=== PATIENT | female | born 1985 | race Caucasian/White ===

== ENCOUNTER 2016-06-08 13:47 | Outpatient (CLI) | payer MEDICAID | END 2016-06-08 13:48 | disposition home or self-care (01) | DX: B18.2 Chronic viral hepatitis C (principal) ==

== ENCOUNTER 2016-11-02 09:31 | Outpatient (CLI) | payer MEDICAID | END 2016-11-02 23:59 | disposition home or self-care (01) | LOC: LAB.R 09:31 | PROVIDERS: ATTEND Obstetrics & Gynecology | DX: Z11.3 Encounter for screening for infections with a predominantly sexual mode of transmission (principal) | CPT/HCPCS: 87491; 87591 ==

== ENCOUNTER 2016-11-02 10:00 | Outpatient (CLI) | payer MEDICAID ==
[2016-11-02 10:40] LABS: BILIRUBIN,URINE NEGATIVE (NEGATIVE)
[2016-11-02 10:40] LABS: BASOPHILS % (AUTO) 0.5 %; EOSINOPHILS # (AUTO) 0.4 10^3/uL (0.0-0.7); HCT - HEMATOCRIT 40.3 % (37.0-47.0); HGB - HEMOGLOBIN 13.8 g/dL (12.0-16.0); LYMPHOCYTES # (AUTO) 2.1 10^3/uL (1.5-3.5); LYMPHOCYTES % (AUTO) 22.7 %; MEAN CORPUSCULAR HEMOGLOBIN 29.3 pg (27.0-31.0); MEAN CORPUSCULAR HGB CONC 34.3 g/dL (32.0-36.0); MEAN CORPUSCULAR VOLUME 85.7 fL (81.0-99.0); MONOCYTES # (AUTO) 0.7 10^3/uL (0.0-1.0); MONOCYTES % (AUTO) 7.1 %; NEUTROPHILS # (AUTO) 6.1 10^3/uL (1.5-6.6); NEUTROPHILS % (AUTO) 65.7 %; RED BLOOD COUNT 4.71 10^6/uL (4.20-5.40); RED CELL DISTRIBUTION WIDTH 12.8 % (12.0-15.0); UNCORRECTED WHITE BLOOD COUNT 9.2 x10^3/uL; WHITE BLOOD COUNT 9.2 x10^3/uL (4.8-10.8)
[2016-11-02 10:47] LABS: WBC,URINE 0-3 /HPF (0-5)
[2016-11-05 14:11] LABS: TREPONEMA AB IGG NEGATIVE (())
== END 2016-11-02 10:01 | disposition home or self-care (01) ==
LOC: LAB 10:00
PROVIDERS: ATTEND Obstetrics & Gynecology
DX: Z36 Encounter for antenatal screening of mother (principal)
CPT/HCPCS: 36415; 81001; 85025; 86762; 86780; 86850; 86900; 86901; 87340; 87389; 87491; 87591

== ENCOUNTER 2016-11-26 08:00 | Outpatient (CLI) | payer MEDICAID | END 2016-11-26 08:01 | LOC: LAB.R 08:00 | PROVIDERS: ATTEND Obstetrics & Gynecology | DX: R82.99 Other abnormal findings in urine (principal) | CPT/HCPCS: 87086 ==

== ENCOUNTER 2016-12-13 03:40 | Emergency (ER) | payer MEDICAID ==
--- NOTE | 2016-12-13 04:21 | ED Physician Documentation ---
PD HPI FEMALE - Stated complaint Stated Complaint: ABD PX/14 WKS PREG - Chief complaint Chief Complaint: Abd Pain - History obtained from History obtained from: Patient - History of Present Illness Timing - duration: Hours Timing - details: Abrupt onset, Waxing and waning Pain level max: 6 Associated symptoms: Abdominal pain. 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 Denies vaginal bleeding Review of Systems Constitutional: denies: Fever Cardiac: reports: Reviewed and negative Respiratory: reports: Reviewed and negative GI: reports: Abdominal Pain. denies: Nausea, Vomiting : reports: Now EGA (14 weeks). 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 : Chronic bladder infection HEENT: None Psych: Depression, Anxiety, Bipolar disorder Musculoskeletal: None Derm: None - Past Surgical History Past Surgical History: Yes Cardiovascular: Lobectomy - Allergies Allergies/Adverse Reactions: Allergies Allergy/AdvReac Type Severity Reaction Status Date / Time No Known Drug Allergies Allergy Verified 12/13/16 03:47 - Social History Does the pt smoke?: Yes Smoking Status: Current every day smoker Does the pt drink ETOH?: No Does the pt have substance abuse?: No - Immunizations Immunizations are current?: Yes - POLST Patient has POLST: No PD ED PE NORMAL - Vitals Vital signs reviewed: Yes - General General: Alert and oriented X 3, No acute distress, Well developed/nourished - Cardiac Cardiac: RRR, No murmur - Respiratory Respiratory: No respiratory distress, Clear bilaterally - Abdomen Abdomen: Soft, Non tender, Non distended - Back Back: No CVA TTP Results - Vitals Vitals: Vital Signs - 24 hr 12/13/16 12/13/16 03:43 06:12 Temperature 36.3 C L Heart Rate 82 89 Respiratory 16 14 Rate Blood Pressure 130/69 98/62 O2 Saturation 100 97 Oxygen O2 Source Room air - Rads (name of study) pelvic US Radiology: Prelim report reviewed, See rad report PD MEDICAL DECISION MAKING - ED course Complexity details: reviewed results, re-evaluated patient, considered differential, d/w patient Departure - Departure Disposition: 01 Home, Self Care Clinical Impression: Threatened Condition: Good Instructions: ED Miscarriage Poss Follow-Up: Tony Desouza MD [Provider Admit Priv/Credential] - (Call to arrange for next available appointment) Discharge Date/Time: 12/13/16 07:00
[2016-12-13] MEDS ORDERED: ACETAMINOPHEN 325 MG TABLET PO STA (04:35)
[2016-12-13] MEDS ORDERED: ACETAMINOPHEN 500 MG TABLET PO ONE (04:39)
[2016-12-13 06:14] VITALS: BP 98/62
--- NOTE | 2016-12-13 06:19 | Ultrasound Preliminary Report ---
Exam: US OB 14+ Weeks IMPRESSION: 1. Single live intrauterine gestation with a composite gestational age on limited biometry of 14 week s 1 days (+/- 2 weeks) based on current ultrasound. EDC based on this ultrasound 06/12/2017. 2. No gross acute abnormality. 3. Follow-up suggested at second trimester 1822 week anatomy scan. [facility] SITE ID: [id number]
--- NOTE | 2016-12-13 06:21 | Ultrasound Report ---
EXAM: OBSTETRIC ULTRASOUND, LIMITED EXAM DATE: 12/13/2016 05:59 AM. CLINICAL HISTORY: , cramping. COMPARISON: None. TECHNIQUE: Real-time scanning performed with static images. Both color-flow and Doppler technology were utilized . FINDINGS: Fetus: Single live intrauterine gestation. Presentation: Cephalic. Heart Rate: 144 BPM. Placenta: Fundal position. No placenta previa or abruption. Amniotic Fluid: Subjectively normal. Biometry: Abdominal circumference (AC): 7.8 cm = 14 weeks 1 days. Femur length (FL): 1.3 cm = 14 weeks 0 days. Anatomic Survey: Not performed. Maternal Structures: Cervix: Long and closed measuring 3.3 cm. Uterus/adnexa: Unremarkable. IMPRESSION: 1. Single live intrauterine gestation with a composite gestational age on limited biometry of 14 week s 1 days (+/- 2 weeks) based on current ultrasound. EDC based on this ultrasound 06/12/2017. 2. No gross acute abnormality. 3. Follow-up suggested at second trimester 1822 week anatomy scan. [facility] Referring Provider Line: [phone] SITE ID: [id number]
[2016-12-13] MEDS ORDERED: HYDROcod/ACET 5/325 Prepack 6 PO STA (06:37)
[2016-12-13] MEDS ORDERED: HYDROcod/ACET 5/325 Prepack 6 PO ONE (06:41)
== END 2016-12-13 07:00 | disposition home or self-care (01) ==
LOC: ED 03:40
DX: O20.0 Threatened abortion (principal); O99.332 Smoking (tobacco) complicating pregnancy, second trimester; Z3A.14 14 weeks gestation of pregnancy
CPT/HCPCS: 76805; 99283; A9270

== ENCOUNTER 2017-01-01 12:34 | Outpatient (CLI) | payer MEDICAID ==
--- NOTE | 2017-01-05 10:22 | Ultrasound Report ---
OB ULTRASOUND: 01/01/2017 CLINICAL INDICATION: anatomy. TECHNIQUE: Real-time scanning was performed with inside account representative static images obtained. LAST MENSTRUAL PERIOD 09/05/2016 Clinical Age --- US Age 17 weeks 2 days EFW Hadlock 187 g EFW% Hadlock --- Heart Rate 140 bpm EDC --- US EDC 06/09/2017 BPD Hadlock 17 weeks 2 days; Mean mm 36.8 HC Hadlock 17 weeks 2 days; Mean mm 138.2 AC Hadlock 17 weeks 5 days; Mean mm 119.4 FL Hadlock 16 weeks 6 days; Mean mm 22.7 Presentation cephalic Placental Location --- Cervical Length 3.8 cm Amniotic Fluid 8.5 cm FINDINGS: There is a single viable intrauterine gestation, in variable position. heart rate is 140 BPM. The placenta is posterior, without evidence of previa. Amniotic fluid volume is normal, with an LEE of 8.5. By size , the fetus measures 17.3 weeks (16.9 weeks by LMP). The following anatomic structures were visualized and appear normal: The intracranial contents, including the ventricles and posterior fossa; the lips and orbits; the spine; the heart, including 4 chamber view and outflow tracts, and diaphragm; the abdominal contents, including the stomach, the bilateral kidneys, and urinary bladder, as well as a normal 3 vessel cord insertion; 4 limbs. No free fluid or adnexal lesion is appreciated. IMPRESSION: SINGLE VIABLE INTRAUTERINE GESTATION, WITH SIZE IN KEEPING WITH LMP DATING. NORMAL ANATOMIC SURVEY. [facility]
== END 2017-01-01 12:35 | disposition home or self-care (01) ==
LOC: DI 12:34
PROVIDERS: ATTEND Obstetrics & Gynecology
DX: Z34.82 Encounter for supervision of other normal pregnancy, second trimester (principal)
CPT/HCPCS: 76811

== ENCOUNTER 2017-02-15 09:53 | Outpatient (CLI) | payer MEDICAID ==
[2017-02-15 11:24] LABS: HCT - HEMATOCRIT 33.3 % (37.0-47.0); HGB - HEMOGLOBIN 11.3 g/dL (12.0-16.0); MEAN CORPUSCULAR HEMOGLOBIN 27.9 pg (27.0-31.0); MEAN CORPUSCULAR HGB CONC 33.8 g/dL (32.0-36.0); MEAN CORPUSCULAR VOLUME 82.6 fL (81.0-99.0); MEAN PLATELET VOLUME 8.4 fL (7.9-10.8); RED BLOOD COUNT 4.04 10^6/uL (4.20-5.40); RED CELL DISTRIBUTION WIDTH 13.9 % (12.0-15.0)
== END 2017-02-15 09:54 | disposition home or self-care (01) ==
LOC: LAB 09:53
PROVIDERS: ATTEND Obstetrics & Gynecology
DX: Z36 Encounter for antenatal screening of mother (principal)
CPT/HCPCS: 36415; 82950; 86850

== ENCOUNTER 2017-03-11 18:54 | Outpatient (CLI) | payer OTHER, MEDICAID ==
[2017-03-11 19:41] VITALS: BP 126/69
[2017-03-11 19:55] LABS: BILIRUBIN,URINE NEGATIVE (NEGATIVE)
[2017-03-11 20:13] LABS: UR CULTURE IF IND NOT INDICATED
[2017-03-11 20:35] LABS: BILIRUBIN,URINE NEGATIVE (NEGATIVE)
[2017-03-11 20:39] LABS: UR CULTURE IF IND NOT INDICATED; WBC,URINE 0-3 /HPF (0-5)
== END 2017-03-11 21:00 | disposition home or self-care (01) ==
LOC: WFO 18:54 → FBP 18:57 → WFO 21:00
PROVIDERS: ATTEND Obstetrics & Gynecology
DX: O26.892 Other specified pregnancy related conditions, second trimester (principal); M24.20 Disorder of ligament, unspecified site; Z3A.26 26 weeks gestation of pregnancy
CPT/HCPCS: 81001; 87086; 99213

== ENCOUNTER 2017-04-13 09:11 | Outpatient (CLI) | payer OTHER, MEDICAID | END 2017-04-13 09:12 | disposition home or self-care (01) | LOC: LAB.R 09:11 | PROVIDERS: ATTEND Obstetrics & Gynecology | DX: R82.99 Other abnormal findings in urine (principal) | CPT/HCPCS: 87086 ==

== ENCOUNTER 2017-05-20 08:00 | Outpatient (CLI) | payer MEDICAID, OTHER | END 2017-05-20 08:01 | LOC: LAB.R 08:00 | PROVIDERS: ATTEND Obstetrics & Gynecology | DX: Z36.85 Encounter for antenatal screening for Streptococcus B (principal) | CPT/HCPCS: 87797 ==

== ENCOUNTER 2017-05-25 14:00 | Outpatient (CLI) | payer OTHER | END 2017-05-25 14:01 | disposition home or self-care (01) | LOC: LAB.R 14:00 | PROVIDERS: ATTEND Obstetrics & Gynecology | DX: N89.8 Other specified noninflammatory disorders of vagina (principal) | CPT/HCPCS: 87480; 87510; 87660 ==

== ENCOUNTER 2017-06-04 21:44 | Inpatient (IN) | payer OTHER ==
--- NOTE | 2017-06-01 15:30 | HISTORY & PHYSICAL EXAMINATION ---
DATE OF SERVICE: 06/04/2017 Physician: Ventura Flowers MD DATE OF ADMISSION: 06/04/2017 DIAGNOSES 1. A 39 week gestation. 2. History of rapid labors, the patient lives a considerable distance from hospital. 3. Group B strep positive. Mrs. Vanessa Durham is a 31-year-old 6, para 4-0-1-4, woman at 39 weeks' gestation based on EDC of the 20th, confirmed by 8 week ultrasound. Her previous labors have been fast and she has poor transportation resources. She is GBS positive and will require 2 doses of antibiotics. She is status post a cone biopsy in 2014. She has no cervical incompetence issues. Her last cervical check was 3 cm, 50% effaced, 0 station, membranes intact. She was acontractile without suspect leaking of fluid. Risks and benefits of induction were discussed. Informed consent paperwork signed. Blood type O positive, GBS positive. PAST MEDICAL HISTORY: Patient has a history of bipolar disorder and anxiety. She had previously taken lithium, but it was stopped. No cardiovascular disease. 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 PAST SURGICAL HISTORY: Conization 2014. ALLERGIES: NO KNOWN DRUG ALLERGIES. MEDICATIONS 1. vitamins. 2. Iron. 3. Acyclovir. SOCIAL HISTORY: , status uncertain, smoker, no drug or alcohol use. REVIEW OF SYSTEMS: Negative. PHYSICAL EXAMINATION: GENERAL: Well groomed, pleasant. VITAL SIGNS: 163, blood pressure 118/70. HEENT: Neck supple. NECK: No thyromegaly. Dentition in good repair. LUNGS: Clear. HEART: Regular, no murmur, no gallop. ABDOMEN: Soft, nontender. No hepatosplenomegaly. Uterus is normal resting tone. Vertex presentation. Estimated weight 7-1/2 to 8 pounds. EXTERNAL GENITALIA: No lesions. VAGINA: No blood or discharge. CERVIX: 3 cm, anterior, 50% effaced, 0 station. EXTREMITIES: Moves all 4 extremities well. NEUROLOGIC: Grossly intact. SKIN: No obvious lesions. ADMISSION LABS: Pending. ASSESSMENT AND PLAN: The patient has a history of labors less than 2 hours in length and lives approximately 12 miles away from the hospital. She also has a GBS positive status and therefore planned induction would be advantageous to ensure adequate antibiotic coverage. PLAN 1. Admit Wednesday morning. 2. Begin first dose of antibiotics. 3. Pitocin induction and rupture of membranes where practical. TD: 06/01/2017 16:28 MTDKimmie
[2017-06-04] MEDS ORDERED: ONDANSETRON 4 MG/2 ML VIAL IVP PRN (22:32)
[2017-06-04] MEDS ORDERED: SODIUM CHLORIDE FLUSH 0.9% 10 ML SYRINGE IVP PRN (22:32)
[2017-06-04] MEDS ORDERED: fentaNYL 100 MCG/2 ML VIAL IVP PRN (22:32)
[2017-06-04] MEDS ORDERED: PENICILLIN G POTASSIUM 5,000,000 UNIT in SODIUM CHLORIDE 0.9% MINIBAG 100 ML IV SCH (22:32)
[2017-06-04] MEDS ORDERED: LACTATED RINGERS 1,000 ML IV SCH (23:00)
[2017-06-04 23:51] LABS: BASOPHILS # (AUTO) 0.1 10^3/uL (0.0-0.1); BASOPHILS % (AUTO) 0.5 %; EOSINOPHILS # (AUTO) 0.2 10^3/uL (0.0-0.7); EOSINOPHILS % (AUTO) 1.9 %; HGB - HEMOGLOBIN 9.5 g/dL (12.0-16.0); LYMPHOCYTES # (AUTO) 2.8 10^3/uL (1.5-3.5); LYMPHOCYTES % (AUTO) 23.6 %; MEAN CORPUSCULAR HEMOGLOBIN 21.8 pg (27.0-31.0); MEAN CORPUSCULAR HGB CONC 31.8 g/dL (32.0-36.0); MEAN CORPUSCULAR VOLUME 68.5 fL (81.0-99.0); MEAN PLATELET VOLUME 8.3 fL (7.9-10.8); MONOCYTES # (AUTO) 0.9 10^3/uL (0.0-1.0); MONOCYTES % (AUTO) 7.9 %; NEUTROPHILS # (AUTO) 7.8 10^3/uL (1.5-6.6); NEUTROPHILS % (AUTO) 66.1 %; PLT - PLATELET COUNT 138 10^3/uL (130-450); RED BLOOD COUNT 4.38 10^6/uL (4.20-5.40); WHITE BLOOD COUNT 11.8 x10^3/uL (4.8-10.8)
[2017-06-04 23:52] LABS: RED CELL DISTRIBUTION WIDTH 19.9 % (12.0-15.0)
--- NOTE | 2017-06-05 00:29 | PROVIDER PROGRESS NOTE ---
Labor Progress Note - Uterine Monitoring Uterine Monitoring Mode: positive: External toco Contraction Frequency (min/apart): q 7min Contraction Intensity: positive: Mild Uterine Resting Tone: positive: Soft - Monitoring Monitor Mode: positive: External ultrasound Heart Rate Baseline: 130 Heart Rate Variability: positive: Moderate (6-25 bmp) Accelerations: positive: Present, 15x15 Decelerations: positive: Variable, Intermittent (<50% x20 min) Strip Review: positive: Category I - Vaginal Exam Dilation (in cm): 3 Effacement (%): 50% Station: 0 Cervical Position: Midposition - Labor Progress Note Labor Progress Note/Additional Text: Changes compared to office exam. GBS prophylaxis started. Augmentation at 0500
[2017-06-05] MEDS ORDERED: SODIUM CHLORIDE FLUSH 0.9% 10 ML SYRINGE IVP PRN (00:30)
[2017-06-05] MEDS ORDERED: ZOLPIDEM 5 MG TABLET PO PRN (00:35)
[2017-06-05] MEDS: ACETAMINOPHEN 325 MG TABLET PO SCH ×4 (04:56→14:10)
[2017-06-05] MEDS ORDERED: PENICILLIN G POTASSIUM 2,500,000 UNIT in SODIUM CHLORIDE 0.9% 100ML 100 ML IV SCH (05:00)
[2017-06-05] MEDS ORDERED: OXYTOCIN/SODIUM CHLORIDE 250 ML IV SCH (05:00)
[2017-06-05] MEDS: LACTATED RINGERS 1,000 ML IV SCH ×4 (05:17→20:34)
[2017-06-05] MEDS: SODIUM CHLORIDE FLUSH 0.9% 10 ML SYRINGE IVP SCH ×2 (05:34→16:04)
[2017-06-05] MEDS ORDERED: SODIUM CHLORIDE FLUSH 0.9% 10 ML SYRINGE IVP SCH (06:00)
[2017-06-05] MEDS: PENICILLIN G POTASSIUM 2,500,000 UNIT in SODIUM CHLORIDE 0.9% 100ML 100 ML IV SCH ×3 (09:11→17:36)
--- NOTE | 2017-06-05 09:44 | PROVIDER PROGRESS NOTE ---
Labor Progress Note - Uterine Monitoring Uterine Monitoring Mode: positive: External toco Contraction Frequency (min/apart): Every 5-7 minutes Contraction Intensity: positive: Mild to moderate (Pitocin augmentation at 10 units) Uterine Resting Tone: positive: Soft - Monitoring Monitor Mode: positive: External ultrasound Heart Rate Variability: positive: Moderate (6-25 bmp) Accelerations: positive: Present, 10x10 (=/32 wks) Decelerations: positive: None Strip Review: positive: Category I - Vaginal Exam Dilation (in cm): 3 Effacement (%): 50% Station: 0 Cervical Position: Midposition - Labor Progress Note Labor Progress Note/Additional Text: Pitocin augmentation begun at 5 AM this morning. Patient requests epidural in place prior to rupture of membranes because of rapid progress of labor in the past.
[2017-06-05] MEDS ORDERED: fent/BUPIV 2 MCG/0.125% 250 ML EP ONE (09:49)
--- NOTE | 2017-06-05 10:26 | PROVIDER PROGRESS NOTE ---
Labor Progress Note - Uterine Monitoring Uterine Monitoring Mode: positive: External toco Contraction Frequency (min/apart): q 3 - 4 min Contraction Intensity: positive: Mild Uterine Resting Tone: positive: Soft - Monitoring Monitor Mode: positive: External ultrasound, Doppler/auscultation Heart Rate Baseline: 130-140 Heart Rate Variability: positive: Moderate (6-25 bmp) Accelerations: positive: Present, 15x15 Decelerations: positive: None Strip Review: positive: Category I - Vaginal Exam Dilation (in cm): 3 Effacement (%): 50% Station: -1 Cervical Position: Posterior - Labor Progress Note Labor Progress Note/Additional Text: Head shifted slightly w repositioning for epidural. Continue Augmentation and AROM later.
[2017-06-05] MEDS ORDERED: NALBUPHINE 20 MG/ML AMP IVP PRN (10:30)
[2017-06-05] MEDS ORDERED: ePHEDrine 50 MG/ML VIAL IVP PRN (10:30)
[2017-06-05] MEDS ORDERED: NALOXONE 0.4 MG/ML VIAL IVP PRN (10:30)
[2017-06-05] MEDS ORDERED: BUPIVACAINE 0.25% PF 10 ML VIAL SUBQ ONE (10:30)
[2017-06-05] MEDS ORDERED: fent/BUPIV 2 MCG/0.125% 250 ML EP PRN (10:30)
[2017-06-05] MEDS ORDERED: LACTATED RINGERS 500 ML IV ONE (10:30)
[2017-06-05] MEDS ORDERED: ONDANSETRON 4 MG/2 ML VIAL IVP PRN (10:30)
[2017-06-05] MEDS: ACYCLOVIR 200 MG CAPSULE PO SCH ×2 (10:50→23:02)
--- NOTE | 2017-06-05 16:59 | PROVIDER PROGRESS NOTE ---
Labor Progress Note - Uterine Monitoring Uterine Monitoring Mode: positive: External toco Contraction Frequency (min/apart): q 3 Contraction Intensity: positive: Mild to moderate Uterine Resting Tone: positive: Soft - Monitoring Monitor Mode: positive: External ultrasound Heart Rate Baseline: 135 Heart Rate Variability: positive: Moderate (6-25 bmp) Accelerations: positive: Present, 15x15 Decelerations: positive: None, Variable (random VDecel) Strip Review: positive: Category I - Vaginal Exam Dilation (in cm): 4 Effacement (%): 50 Station: -2 Cervical Position: Posterior (Labial & Vaginal edema. Progress of Labor slowed and head not in position for AROM. Pt complains of R ear. Searching for functional Otoscope. Tylenol and afrin. Bicitrra for heartburn.)
[2017-06-05] MEDS ORDERED: CITRIC ACID/SODIUM CITRATE 15 ML UDC PO SCH (17:09)
[2017-06-05] MEDS ORDERED: OXYMETAZOLINE NASAL SPRAY NAS PRN (17:10)
--- NOTE | 2017-06-05 18:31 | PROVIDER PROGRESS NOTE ---
Labor Progress Note - Uterine Monitoring Uterine Monitoring Mode: positive: External toco, Palpation Contraction Frequency (min/apart): q 3min Contraction Intensity: positive: Moderate Uterine Resting Tone: positive: Soft - Monitoring Monitor Mode: positive: External ultrasound Heart Rate Baseline: [id number] Heart Rate Variability: positive: Moderate (6-25 bmp) Accelerations: positive: Present, 15x15 Decelerations: positive: Variable Strip Review: positive: Category II - Vaginal Exam Dilation (in cm): 3 Effacement (%): 100% Station: 0 Cervical Position: Midposition ( tachycardia thought to be in response to scalp stimulation from prior exam. variability is maintained and therefore doubt distress. Cervical position improved enough to allow artificial rupture of membrane which produced mostly clear fluid with some sanguinous staining. Continue Pitocin augmentation and epidural. Pitocin maximal at 20 mU/h. Discussed the above with nursing.)
[2017-06-05] MEDS ORDERED: miSOPROStol 200 MCG TABLET PO ONE (19:00)
[2017-06-05] MEDS ORDERED: OXYTOCIN/SODIUM CHLORIDE 250 ML IV ONE (19:00)
--- NOTE | 2017-06-05 21:14 | PROVIDER PROGRESS NOTE ---
Labor Progress Note - Uterine Monitoring Uterine Monitoring Mode: positive: External toco Contraction Frequency (min/apart): q 2.5 - 3 min Contraction Intensity: positive: Moderate Uterine Resting Tone: positive: Soft - Monitoring Monitor Mode: positive: External ultrasound Heart Rate Variability: positive: Moderate (6-25 bmp) Accelerations: positive: Present, 15x15 Decelerations: positive: None Strip Review: positive: Category I - Vaginal Exam Dilation (in cm): 10 Effacement (%): 1005 Station: 2 Cervical Position: Anterior - Labor Progress Note Labor Progress Note/Additional Text: Entering 2nd Stage. Dense Epidural
[2017-06-05] MEDS: OXYTOCIN/SODIUM CHLORIDE 250 ML IV ONE (21:40)
[2017-06-05] MEDS ORDERED: WITCH HAZEL/GLYCERIN 1 EACH MED..PAD TOP PRN (21:49)
[2017-06-05] MEDS ORDERED: HYDROcod/ACETAM 5/325 MG TABLET PO PRN (21:49)
[2017-06-05] MEDS ORDERED: HYDROCORTISONE/PRAMOXINE 10 GM PR PRN (21:49)
[2017-06-05] MEDS ORDERED: diphenhydrAMINE 25 MG CAPSULE PO PRN (21:49)
--- NOTE | 2017-06-05 21:59 | DELIVERY NOTE ---
Delivery Note - Labor Labor: positive: Augmented by oxytocin - Delivery Method Delivery Method: positive: Spontaneous vaginal delivery - Presentation Presentation: positive: Vertex, Compound - Nuchal Cord Nuchal Cord: positive: None - Anesthetic Anesthetic Type: - Amniotic Fluid Description Amniotic Fluid Description: positive: Clear - Episiotomy Type Episiotomy Type: positive: None - Laceration Laceration: positive: None - Delivery Outcome Delivery Outcome: positive: Livebirth - [place]: positive: Placed in direct skin contact with mother, Bulb syringe, Stimulated, [place] used sex: positive: Female - Cord Cord: positive: 3 vessels - Placenta Placenta: positive: Intact, Spontaneous - Estimated Blood Loss Estimated Blood Loss (in cc): 400 - Post Delivery Events Post Delivery Events: positive: No post delivery events - Delivery Comments (Free Text/Narrative) Delivery Comments (Free Text/Narrative): Apgars and weight pending; due to brisk bleeding post delivery and patient being mildly anemic 1000 of mesial process total placed per rectum
[2017-06-05] MEDS: IBUPROFEN 600 MG TABLET PO SCH (23:02)
[2017-06-06] MEDS: OXYTOCIN/SODIUM CHLORIDE 250 ML IV ONE (01:29)
[2017-06-06] MEDS: LACTATED RINGERS 1,000 ML IV SCH ×2 (04:54→09:44)
[2017-06-06] MEDS: IBUPROFEN 600 MG TABLET PO SCH ×4 (04:56→20:47)
[2017-06-06] MEDS: ACYCLOVIR 200 MG CAPSULE PO SCH ×2 (09:39→20:47)
[2017-06-06 11:55] LABS: BASOPHILS # (AUTO) 0.1 10^3/uL (0.0-0.1); BASOPHILS % (AUTO) 0.5 %; EOSINOPHILS # (AUTO) 0.2 10^3/uL (0.0-0.7); EOSINOPHILS % (AUTO) 1.5 %; HGB - HEMOGLOBIN 9.2 g/dL (12.0-16.0); LYMPHOCYTES # (AUTO) 1.8 10^3/uL (1.5-3.5); LYMPHOCYTES % (AUTO) 16.4 %; MEAN CORPUSCULAR HEMOGLOBIN 21.8 pg (27.0-31.0); MEAN CORPUSCULAR HGB CONC 31.8 g/dL (32.0-36.0); MEAN CORPUSCULAR VOLUME 68.6 fL (81.0-99.0); MEAN PLATELET VOLUME 8.2 fL (7.9-10.8); MONOCYTES # (AUTO) 0.8 10^3/uL (0.0-1.0); MONOCYTES % (AUTO) 7.1 %; NEUTROPHILS # (AUTO) 8.2 10^3/uL (1.5-6.6); NEUTROPHILS % (AUTO) 74.5 %; PLT - PLATELET COUNT 136 10^3/uL (130-450); RED BLOOD COUNT 4.19 10^6/uL (4.20-5.40); RED CELL DISTRIBUTION WIDTH 19.9 % (12.0-15.0)
[2017-06-07] MEDS: IBUPROFEN 600 MG TABLET PO SCH ×4 (02:40→19:56)
[2017-06-07] MEDS: ACYCLOVIR 200 MG CAPSULE PO SCH ×2 (09:29→21:23)
--- NOTE | 2017-06-07 09:44 | PROVIDER PROGRESS NOTE ---
Subjective - General Admit Date: 06/04/17 Procedure Date: 06/05/17 Post Op Days: 2 - Review of Systems Wound/Incisions: positive: Other (No Wound) Objective - Patient Data Vital Signs: Vital Signs x48h Temp Pulse Resp BP Pulse Ox 06/07/17 08:00 98.2 F 79 15 114/59 L 100 Intake & Output: Intake and Output Totals x24h 06/05/17 06/06/17 06/07/17 23:59 23:59 23:59 Intake Total 3081.817 1845 200 Output Total 3965 1000 Balance -883.183 845 200 - Lab Results Lab Results: 06/06/17 11:43 Other Lab Results: Lab Results x24hrs 06/06/17 Range/Units 11:43 WBC 11.0 H (4.8-10.8) x10^3/uL RBC 4.19 L (4.20-5.40) 10^6/uL Hgb 9.2 L (12.0-16.0) g/dL Hct 28.7 L (37.0-47.0) % MCV 68.6 L (81.0-99.0) fL MCH 21.8 L (27.0-31.0) pg MCHC 31.8 L (32.0-36.0) g/dL RDW 19.9 H (12.0-15.0) % Plt Count 136 (130-450) 10^3/uL MPV 8.2 (7.9-10.8) fL Neut # 8.2 H (1.5-6.6) 10^3/uL Lymph # 1.8 (1.5-3.5) 10^3/uL [place] # 0.8 (0.0-1.0) 10^3/uL Eos # 0.2 (0.0-0.7) 10^3/uL Baso # 0.1 (0.0-0.1) 10^3/uL Absolute Nucleated RBC 0.00 x10^3/uL Nucleated RBC % 0.0 /100WBC - Current Medications Current Medications: Current Medications Generic Name Dose Route Start Last Admin Trade Name Freq PRN Reason Stop Dose Admin Acyclovir 400 mg 06/05/17 10:00 06/07/17 09:29 Zovirax PO 400 mg BID TOYA Administration Ibuprofen 600 mg 06/05/17 22:00 06/07/17 09:30 Motrin PO Not Given Q6H TOYA Assessment/Plan - Assessment/Plan Assessment: Cultures pending. Peds request 24 h more observation. Plan: Re-Eval in am.
[2017-06-07] MEDS ORDERED: FLUCONAZOLE 100 MG TABLET PO SCH (12:06)
[2017-06-08] MEDS: IBUPROFEN 600 MG TABLET PO SCH ×2 (02:52→10:55)
--- NOTE | 2017-06-08 08:25 | PROVIDER PROGRESS NOTE ---
Subjective - Prog Note Date Prog Note Date: 06/06/17 Prog Note Time: 11:00 - Subjective Pt reports feeling: Improved Subjective: Patient delivered late last night and has recovered without difficulty. She is ambulating without problems and taking solid nutrition. She is chosen not to breast-feed. She and her have bonded. Uterus is firm and nontender. Lochia is non-foul. Plan is to continue supportive care. Objective - Vital Signs/Intake & Output Vital Signs: Vital Signs x48h Temp Pulse Resp BP Pulse Ox 06/08/17 02:51 98.2 F 76 16 115/65 99 Intake & Output: Intake & Output 06/05/17 06/06/17 06/07/17 06/08/17 23:59 23:59 23:59 23:59 Intake Total 3081.817 1845 200 Output Total 3965 1000 Balance -883.183 845 200 - Lab Results Fish Bones: 06/06/17 11:43
[2017-06-08 08:43] VITALS: BP 107/63
--- NOTE | 2017-06-08 08:57 | Discharge Plan ---
Discharge Plan Disposition: 01 Home, Self Care Condition: Good Diet: Regular Activity Restrictions: Activity as Tolerated Shower Restrictions: No Driving Restrictions: No No Smoking: If you smoke, Please STOP! Call for help. Follow-up with: Ventura Flowers MD [Provider Admit Priv/Credential] -
--- NOTE | 2017-06-08 09:02 | DISCHARGE SUMMARY ---
DATE OF SERVICE: 06/08/2017 Physician: Ventura Flowers MD DIAGNOSES 1. Term . 2. History of rapid deliveries. 3. Augmented labor. 4. Group B streptococcus positive mother. 5. Anemia in (hemoglobin 9.4 on admission). 6. Compound presentation with left arm. 7. Herpes 2 Prophylaxis PROCEDURE: Vaginal delivery over an intact perineum of a living female infant. COMPLICATIONS: None. HISTORY: Vanessa Durham is a 31-year-old X, para Y, who was originally scheduled for induction on Wednesday. She began tyrone on Wednesday and presented in early labor. heart tracing remained stable. GBS prophylaxis with penicillin was begun per protocol. The patient has a history of bipolar disorder and increased anxiety. She requested early epidural, which was granted at 3 cm. Subsequently, her contractions lessened in intensity and frequency. Pitocin augmentation was begun. Membranes were ruptured on the to yield clear nonfoul fluid. She continued on to deliver uneventfully over intact perineum. A living female was born weighing 8lb 4oz with Apgars of 8/9. Total blood loss was 400 and since she was anemic, 1000 mg of Cytotec was placed per rectum, to ensure minimal loss. The placenta was delivered intact with 3-vessel cord. The patient recovered and chose not to breastfeed. Both myself and Pediatrics talked to her about the advantages of breast feeding, but she declined. Postdelivery baby girl had some grunting and was closely observed by Pediatrics. Cultures were drawn. Mother stayed with infant throughout the period of observation. On Wednesday, infant and mom were ready for discharge. She was given complete wound care, callback instructions. DISCHARGE MEDICATIONS 1. Motrin 600 q. 6 hours x7 days with 1 refill. 2. vitamins with iron. 3. Ferrous sulfate 325 two tabs daily. 3. Colace. TD: 06/08/2017 10:01 [facility]
[2017-06-08] MEDS: ACYCLOVIR 200 MG CAPSULE PO SCH (10:54)
--- NOTE | 2017-06-08 10:58 | Labor Flowsheet ---
Labor Flowsheet Datetime Report Generated by CPN: 06/08/2017 10:57 Datetime: 06/08/2017 08:36 VITAL SIGNS NBP Sys/Holly/Mean (mmHg): 105 : 63 : 71 Pulse: 94 LaborFlag: Labor Datetime: 06/08/2017 08:35 SpO2 (%): 99 Datetime: 06/05/2017 21:40 Medication Comments: 1000 Cytotec administered Datetime: 06/05/2017 21:34 STAGE 2 Pushing: Coached on Pushing Pushing Position: Pushing with Contractions Pushing Progress: Descent with Pushing Datetime: 06/05/2017 21:30 UTERINE ACTIVITY Monitor Mode: External Frequency (min): 3-4 Duration (sec): 90-180 Pattern: Normal: <= 5 Contractions in 10 Minutes ASSESSMENT A Monitor Mode: External US FHR Baseline Rate : 125 Variability: Moderate 6-25 bpm Accelerations: 15X15 Decelerations: None Category: Category I Datetime: 06/05/2017 21:19 TEACHING Instructional Method: Verbal Labor/Induction: Pushing Methods Datetime: 06/05/2017 21:11 Monitor Interventions for FHR: Ultrasound Adjusted Datetime: 06/05/2017 21:10 VAGINAL EXAM Dilatation (cm): 10.0 Effacement (%): 100 Station: 2 Exam by: Dr. Flowers Anesthesia Comments: epidural turned off to allow for more sense of sensation Datetime: 06/05/2017 21:09 COMMUNICATION Communication: Provider at Bedside Provider Notified (Name): Dr. Flowers Datetime: 06/05/2017 21:05 Communication Comments: VE results, MD on the way in Datetime: 06/05/2017 21:00 Pitocin Checklist: At Least 1 Acceleration of 15 bpm x 15 Seconds in 30 Minutes or Adequate Variabi lity; No More than 1 Late Deceleration Occurred in Past 30 Minutes; No More than 2 Variable Decelerat ions > 60 Seconds in Duration and decreasing >60 bpm in 30 minutes; No More than 5 Uterine Contractio ns in 10 Minutes for any 20 Minute Interval; Uterus Palpates Soft between Contractions PAIN Pain Scale: 0 Datetime: 06/05/2017 20:30 Resting Tone (Palpate): Relaxed Datetime: 06/05/2017 20:22 Monitor Interventions for UA: [place] Adjusted Datetime: 06/05/2017 20:17 Temperature (C): 36.7 Datetime: 06/05/2017 20:15 Respirations: 13 Datetime: 06/05/2017 20:00 MATERNAL ASSESSMENT Level of Consciousness: Fully Conscious Headache: Denies Breath Sounds, Left: Clear and Equal Breath Sounds, Right: Clear and Equal Nausea/Vomiting: Denies Datetime: 06/05/2017 19:52 Anesthesia Level Check: T7 Plan of Care: Plan of Care Discussed; Vaginal Delivery; Labor Unit Routine: Unit Personnel Pain Management: Epidural Medications: Antibiotics Datetime: 06/05/2017 19:15 Hygiene: Peripad Changed Patient Care Comments: moderate amount of pink tinged amniotic fluid noted Datetime: 06/05/2017 19:00 Quality: Strong FHR Baseline Changes: Return to Previous Baseline Datetime: 06/05/2017 18:30 Antiemetics/Antacids: Bicitra 30 ml PO (Annotations: 15ml Bicitra administered ) Datetime: 06/05/2017 18:23 Membrane Status: Ruptured Membranes Ruptured Date/Time: 06/05/2017 18:23 Membranes Rupture Method: Artificial Amniotic Fluid Color: Bloody Amniotic Fluid Amount: Moderate Amniotic Fluid Odor: None Datetime: 06/05/2017 18:17 I/O Interventions: [place] Cath Inserted Provider Reviewed Strip: Yes Strip Reviewed by: Dr. Flowers Datetime: 06/05/2017 16:53 Comments: paper changed from #[id number] to # [id number] Cervix, Position: Posterior Vaginal Exam Comments: provider noted significant vaginal and perineal swelling Datetime: 06/05/2017 15:09 Pain Assessment Comments: patient reports pain 7/10vps between earache and nausea/heartburn Patient Position/Activity: Right Tilt Datetime: 06/05/2017 15:05 Vaginal Bleeding: None Cervix, Consistency: Soft Datetime: 06/05/2017 14:59 MEDICATIONS Pitocin (milliunits): Increased to @ (Annotations: 20) Datetime: 06/05/2017 14:07 Analgesics/Sedatives: Tylenol (mg) @ 650 Datetime: 06/05/2017 12:56 Antibiotics: Penicillin IV (Units) @ 2,500,000 PATIENT CARE IV/Blood Work: New IV Bag Hung Datetime: 06/05/2017 12:26 Procedures: Sterile Vag Exam Datetime: 06/05/2017 11:14 Pain Presence: None/Denies Datetime: 06/05/2017 10:22 Epidural Procedure: Completed Epidural Procedure Other: Pump Started Datetime: 06/05/2017 09:44 ANESTHESIA Anesthesia Plans: Epidural Anesthesia Interview: E Epidural Positioning: Sitting Datetime: 06/05/2017 07:46 Temperature Route: Oral Datetime: 06/05/2017 02:30 Stage of : Labor Datetime: 06/05/2017 00:00 Contraction Comments: able to talk through UC's
[2017-06-10 20:22] LABS: HCV RNA QNT <1.18 NOT DETECTED Log IU/mL (<1.18); HCV RNA QUANT RT PCR <15 NOT DETECTED IU/mL (<15)
== END 2017-06-08 10:30 | disposition home or self-care (01) | DRG 774 ==
LOC: WFO 21:44 → FBP 21:46 → WFO 22:31 → FBP 22:32
PROVIDERS: ADMIT Obstetrics & Gynecology; ATTEND Obstetrics & Gynecology
PROC: 10E0XZZ Delivery of Products of Conception, External Approach (ICD-10-PCS; principal; 2017-06-05)
PROC: 10907ZC Drainage of Amniotic Fluid, Therapeutic from Products of Conception, Via Natural or Artificial Opening (ICD-10-PCS; 2017-06-05)
DX: O99.824 Streptococcus B carrier state complicating childbirth (principal); O98.32 Other infections with a predominantly sexual mode of transmission complicating childbirth; O32.6XX0 Maternal care for compound presentation, not applicable or unspecified; O99.02 Anemia complicating childbirth; D64.9 Anemia, unspecified; A60.00 Herpesviral infection of urogenital system, unspecified; O99.344 Other mental disorders complicating childbirth; F31.9 Bipolar disorder, unspecified; F41.9 Anxiety disorder, unspecified; O99.334 Smoking (tobacco) complicating childbirth; Z86.19 Personal history of other infectious and parasitic diseases; Z37.0 Single live birth; Z3A.40 40 weeks gestation of pregnancy
CPT/HCPCS: 36415; 85025; 87522; 99213